=== PATIENT | male | born 1975 | race African-American/Black ===

== ENCOUNTER 2018-08-10 22:34 | Emergency (ER) | payer BC ==
[~2018-08-10] VITALS: Ht 182.9 cm; Wt 99.3 kg
--- NOTE | ~2018-08-10 | EKG ---
[place] [address] [facility] [place] [address] ELECTROCARDIOGRAM REPORT Name: OTTO HUGO Room #: DEP Juli#: [id number] Admission: 08/10/18 Attend Phys: Discharge: 08/10/18 Date of : 71 Report #: [id number] THIS REPORT FOR: //name// [facility] ED Test Date: 2018-08-10 Test Time: 22:39:35 Pat Name: OTTO HUGO Department: Room: Gender: Technology Risk Intern: [facility] : 1975 Requested By: Patrick Blankenship Order Number: [id number] MD: Brian Serra Measurements Intervals [place] Rate: 55 P: 66 MN: 164 QRS: 58 QRSD: 90 T: -39 QT: 372 QTc: 356 Interpretive Statements Sinus rhythm Atrial premature complex Left atrial enlargement Borderline T abnormalities Early R-wave progression No previous ECG available for comparison Electronically Signed On 08-11-2018 8:05:53 CDT by Brian Serra [email or web address] <ELECTRONICALLY SIGNED> By: Brian Serra MD, [facility] 08/11/18 [id number] Brian Serra MD, FACC /EPI
[~2018-08-10 22:34] MED LIST: ACETAMINOPHEN-1 EAC1 PO; ERYTHROMYCIN E3.5 G1 OP
[2018-08-10] MEDS ORDERED: EXFORGE HCT 5-1 EAC1 PO (23:03)
[2018-08-10 23:06] LABS: ABSOLUTE NEUTROPHILS 2.4 thou/uL (1.4-8.2); BASOPHILS 0.8 % (0.0-2.0); EOSINOPHILS 2.6 % (0.0-3.0); HEMATOCRIT 41.3 % (42.0-52.0); HEMOGLOBIN 14.2 gm/dL (14.0-18.0); LYMPHOCYTES 44.6 % (24.0-44.0); MCH 28.8 pg (26.0-34.0); MCHC 34.3 g/dL (28.0-37.0); MCV 83.9 fL (80.0-100.0); MONOCYTES 8.7 % (1.0-8.0); PLATELET COUNT 195 thou/uL (150-400); POLYS 43.3 % (36.0-66.0); RBC 4.92 mil/uL (4.50-6.00); RDW 12.6 % (10.5-14.5); WBC 5.6 thou/uL (4.0-11.0)
[2018-08-10 23:12] LABS: ANION GAP 10 mmol/L (7-16); BUN 19 mg/dL (7-18); CALCIUM 9.3 mg/dL (8.5-10.1); CHLORIDE 102 mmol/L (98-107); CO2 28 mmol/L (21-32); CREATININE 1.3 mg/dL (0.7-1.3); POTASSIUM 3.6 mmol/L (3.5-5.1); SODIUM 140 mmol/L (136-145)
[2018-08-10 23:20] LABS: TROPONIN-I <0.06 ng/mL (<0.06)
[2018-08-10 23:24] LABS: GLUCOSE 137 mg/dL (74-106)
[2018-08-10 23:27] LABS: LARGE PLATELETS SEVERAL
[2018-08-10 23:46] VITALS: BP 138/90
== END 2018-08-10 23:47 | disposition home or self-care (01) ==
LOC: ER 22:34
PROVIDERS: Emergency Medicine
DX: R07.9 Chest pain, unspecified (principal); I10 Essential (primary) hypertension

== ENCOUNTER 2018-10-16 15:34 | Emergency (ER) | payer BC ==
[~2018-10-16 15:34] MED LIST changes: +EXFORGE HCT 5-1 EAC1 PO
[2018-10-17] MEDS ORDERED: AMLOD-VALSA-HC1 EAC2 PO (11:28)
[2018-10-17] MEDS ORDERED: VITAMIN D1000 UNI1 PO (11:29)
[2018-10-17] MEDS ORDERED: FISH OIL 1,001000 M2 PO (11:29)
[2018-10-17] MEDS ORDERED: UNICOMPLEX M TA1 TA1 PO (11:30)
[2018-10-17] MEDS ORDERED: HYDROCODONE-AP1 EAC6 PO (11:50)
[2018-10-17] MEDS ORDERED: PHENERGAN 25 MG25 M1 PO (11:50)
[2018-10-17] MEDS ORDERED: FLOMAX0.4 MG PO (11:50)
== END 2018-10-16 16:54 | disposition left against medical advice (07) ==
LOC: ER 15:34
DX: Z53.21 Procedure and treatment not carried out due to patient leaving prior to being seen by health care provider (principal)

== ENCOUNTER 2018-10-17 10:22 | Emergency (ER) | payer BC ==
[~2018-10-17] VITALS: Ht 182.9 cm; Wt 99.8 kg
[2018-10-17 10:58] LABS: ABSOLUTE NEUTROPHILS 3.1 thou/uL (1.4-8.2); BASOPHILS 0.5 % (0.0-2.0); EOSINOPHILS 1.9 % (0.0-3.0); HEMATOCRIT 40.1 % (42.0-52.0); LYMPHOCYTES 27.5 % (24.0-44.0); MCH 27.6 pg (26.0-34.0); MCHC 32.5 g/dL (28.0-37.0); MONOCYTES 8.9 % (1.0-8.0); PLATELET COUNT 212 thou/uL (150-400); POLYS 61.2 % (36.0-66.0); RBC 4.72 mil/uL (4.50-6.00); RDW 13.6 % (10.5-14.5)
[2018-10-17 11:02] LABS: URINE CLARITY CLEAR; URINE COLOR YELLOW
[2018-10-17 11:06] LABS: URINE BILIRUBIN NEGATIVE (Negative); URINE BLOOD 3+ (Negative); URINE GLUCOSE-RANDOM* NEGATIVE (Negative); URINE KETONES NEGATIVE (Negative); URINE LEUKOCYTES-REFLEX NEGATIVE (Negative); URINE NITRITE-REFLEX NEGATIVE (Negative); URINE PROTEIN (DIPSTICK) NEGATIVE (Negative); URINE UROBILINOGEN 0.2 E.U./dl (0.2-1.0)
[2018-10-17 11:06] LABS: CALCIUM 8.6 mg/dL (8.5-10.1); CREATININE 1.3 mg/dL (0.7-1.3); POTASSIUM 3.2 mmol/L (3.5-5.1)
[2018-10-17 11:12] LABS: ALBUMIN 3.5 g/dL (3.4-5.0); TOTAL BILIRUBIN 0.5 mg/dL (<0.1-1.0); TOTAL PROTEIN 7.3 g/dL (6.4-8.2)
[2018-10-17 11:17] LABS: SQUAMOUS None Seen /LPF (0-3)
[2018-10-17 11:18] LABS: BACTERIA-REFLEX None Seen /HPF (None Seen); CASTS None Seen /LPF (None Seen); CRYSTALS None Seen /LPF (None Seen); URINE RBC >20 Many /HPF (0-2); URINE WBC-REFLEX 0-5 Rare /HPF (0-5)
[2018-10-17] MEDS ORDERED: AMLOD-VALSA-HC1 EAC2 PO (11:28)
[2018-10-17] MEDS ORDERED: FISH OIL 1,001000 M2 PO (11:29)
[2018-10-17] MEDS ORDERED: VITAMIN D1000 UNI1 PO (11:29)
[2018-10-17] MEDS ORDERED: UNICOMPLEX M TA1 TA1 PO (11:30)
[2018-10-17] MEDS ORDERED: FLOMAX0.4 MG PO (11:50)
[2018-10-17] MEDS ORDERED: HYDROCODONE-AP1 EAC6 PO (11:50)
[2018-10-17] MEDS ORDERED: PHENERGAN 25 MG25 M1 PO (11:50)
[2018-10-17 12:04] VITALS: BP 148/100
== END 2018-10-17 12:08 | disposition home or self-care (01) ==
LOC: ER 10:22
PROVIDERS: Physician Assistant
DX: N20.0 Calculus of kidney (principal); R31.9 Hematuria, unspecified; Z87.891 Personal history of nicotine dependence

== ENCOUNTER 2018-12-16 19:30 | Emergency (ER) | payer BC ==
[~2018-12-16] VITALS: Ht 182.9 cm; Wt 100.7 kg
[~2018-12-16 19:30] MED LIST changes: +AMLOD-VALSA-HC1 EAC2 PO; +FISH OIL 1,001000 M2 PO; +FLOMAX0.4 MG PO; +HYDROCODONE-AP1 EAC6 PO; +PHENERGAN 25 MG25 M1 PO; +UNICOMPLEX M TA1 TA1 PO; +VITAMIN D1000 UNI1 PO
[2018-12-16 21:00] LABS: URINE BILIRUBIN NEGATIVE (Negative); URINE BLOOD TRACE (Negative); URINE CLARITY CLEAR; URINE COLOR YELLOW; URINE GLUCOSE-RANDOM* NEGATIVE (Negative); URINE KETONES NEGATIVE (Negative); URINE LEUKOCYTES-REFLEX NEGATIVE (Negative); URINE NITRITE-REFLEX NEGATIVE (Negative); URINE PROTEIN (DIPSTICK) NEGATIVE (Negative); URINE UROBILINOGEN 0.2 E.U./dl (0.2-1.0)
[2018-12-16] MEDS ORDERED: NORCO 5-325 TA1 EACH PO (21:04)
[2018-12-16 21:24] VITALS: BP 131/93
== END 2018-12-16 21:39 | disposition home or self-care (01) ==
LOC: ER 19:30
PROVIDERS: Emergency Medicine
DX: N20.0 Calculus of kidney (principal); Z87.891 Personal history of nicotine dependence

== ENCOUNTER 2019-05-05 00:44 | Emergency (ER) | payer BC ==
[~2019-05-05] VITALS: Ht 180.3 cm; Wt 102.1 kg
[~2019-05-05 00:44] MED LIST changes: +NORCO 5-325 TA1 EACH PO
[2019-05-05 01:13] LABS: URINE BILIRUBIN NEGATIVE (Negative); URINE BLOOD 3+ (Negative); URINE COLOR YELLOW; URINE GLUCOSE-RANDOM* NEGATIVE (Negative); URINE KETONES NEGATIVE (Negative); URINE LEUKOCYTES-REFLEX NEGATIVE (Negative); URINE NITRITE-REFLEX NEGATIVE (Negative); URINE PROTEIN (DIPSTICK) NEGATIVE (Negative); URINE SPECIFIC GRAVITY 1.015 (1.005-1.035); URINE UROBILINOGEN 0.2 E.U./dl (0.2-1.0)
[2019-05-05 01:18] LABS: URINE CLARITY HAZY
[2019-05-05 01:26] LABS: BACTERIA-REFLEX 1-9 Few /HPF (None Seen); CASTS None Seen /LPF (None Seen); CRYSTALS None Seen /LPF (None Seen); MUCUS 0-3 Light strn/LPF (None Seen); SQUAMOUS 0-3 Few /LPF (0-3); URINE RBC >20 Many /HPF (0-2); URINE WBC-REFLEX 0-5 Rare /HPF (0-5)
[2019-05-05 01:52] LABS: ABSOLUTE NEUTROPHILS 2.5 thou/uL (1.4-8.2); BASOPHILS 0.7 % (0.0-2.0); EOSINOPHILS 2.5 % (0.0-3.0); HEMATOCRIT 40.5 % (42.0-52.0); HEMOGLOBIN 13.9 gm/dL (14.0-18.0); MCH 28.6 pg (26.0-34.0); MCHC 34.3 g/dL (28.0-37.0); MCV 83.5 fL (80.0-100.0); MONOCYTES 10.8 % (1.0-8.0); PLATELET COUNT 189 thou/uL (150-400); RBC 4.85 mil/uL (4.50-6.00); RDW 13.2 % (10.5-14.5)
[2019-05-05 02:00] LABS: CALCIUM 8.9 mg/dL (8.5-10.1); CREATININE 1.3 mg/dL (0.7-1.3); POTASSIUM 3.6 mmol/L (3.5-5.1)
[2019-05-05 02:06] LABS: ALBUMIN 3.8 g/dL (3.4-5.0); TOTAL BILIRUBIN 0.3 mg/dL (<0.1-1.0); TOTAL PROTEIN 7.6 g/dL (6.4-8.2)
[2019-05-05] MEDS ORDERED: NORCO 5-325 TA1 EAC1 PO (03:41)
[2019-05-05] MEDS ORDERED: ZOFRAN ODT4 MG PO (03:41)
[2019-05-05] MEDS ORDERED: SENNA-DOCUSATE1 EAC1 PO (03:41)
[2019-05-05] MEDS ORDERED: IBUPROFEN 600600 M1 PO (03:41)
[2019-05-05 03:56] VITALS: BP 134/95
== END 2019-05-05 03:57 | disposition home or self-care (01) ==
LOC: ER 00:44
PROVIDERS: Emergency Medicine
DX: N20.1 Calculus of ureter (principal); R11.2 Nausea with vomiting, unspecified; Z87.891 Personal history of nicotine dependence

== ENCOUNTER 2019-07-08 18:22 | Emergency (ER) | payer BC ==
[~2019-07-08] VITALS: Ht 182.9 cm; Wt 102.1 kg
[~2019-07-08 18:22] MED LIST changes: +IBUPROFEN 600600 M1 PO; +NORCO 5-325 TA1 EAC1 PO; +SENNA-DOCUSATE1 EAC1 PO; +ZOFRAN ODT4 MG PO
[2019-07-08] MEDS ORDERED: EDARBI40 MG PO (18:37)
[2019-07-08] MEDS ORDERED: NORVASC5 MG PO (18:38)
[2019-07-08 19:08] LABS: ABSOLUTE NEUTROPHILS 3.4 thou/uL (1.4-8.2); BASOPHILS 0.7 % (0.0-2.0); EOSINOPHILS 2.5 % (0.0-3.0); HEMATOCRIT 40.9 % (42.0-52.0); HEMOGLOBIN 13.4 gm/dL (14.0-18.0); LYMPHOCYTES 33.3 % (24.0-44.0); MCH 27.7 pg (26.0-34.0); MCHC 32.6 g/dL (28.0-37.0); MCV 84.9 fL (80.0-100.0); MONOCYTES 9.5 % (1.0-8.0); PLATELET COUNT 262 thou/uL (150-400); RBC 4.82 mil/uL (4.50-6.00); RDW 13.3 % (10.5-14.5); WBC 6.3 thou/uL (4.0-11.0)
[2019-07-08 19:11] LABS: CALCIUM 9.2 mg/dL (8.5-10.1); CREATININE 1.1 mg/dL (0.7-1.3); POTASSIUM 3.7 mmol/L (3.5-5.1)
[2019-07-08 19:17] LABS: ALBUMIN 3.8 g/dL (3.4-5.0); DIRECT BILIRUBIN 0.1 mg/dL (<0.1-0.3); TOTAL BILIRUBIN 0.4 mg/dL (<0.1-1.0); TOTAL PROTEIN 7.9 g/dL (6.4-8.2)
[2019-07-08 19:57] LABS: URINE BILIRUBIN NEGATIVE (Negative); URINE BLOOD TRACE (Negative); URINE CLARITY CLEAR; URINE COLOR YELLOW; URINE GLUCOSE-RANDOM* NEGATIVE (Negative); URINE KETONES NEGATIVE (Negative); URINE LEUKOCYTES-REFLEX NEGATIVE (Negative); URINE NITRITE-REFLEX NEGATIVE (Negative); URINE PROTEIN (DIPSTICK) NEGATIVE (Negative); URINE UROBILINOGEN 0.2 E.U./dl (0.2-1.0)
[2019-07-08] MEDS ORDERED: NORFLEX100 MG PO (20:24)
[2019-07-08 20:35] VITALS: BP 134/87
== END 2019-07-08 20:35 | disposition home or self-care (01) ==
LOC: ER 18:22
PROVIDERS: Emergency Medicine
DX: R07.89 Other chest pain (principal); I10 Essential (primary) hypertension; Z87.891 Personal history of nicotine dependence; Z87.442 Personal history of urinary calculi

== ENCOUNTER 2020-07-03 19:03 | Emergency (ER) | payer BC ==
[~2020-07-03] VITALS: Ht 182.9 cm; Wt 105.0 kg
[~2020-07-03 19:03] MED LIST changes: +EDARBI40 MG PO; +NORFLEX100 MG PO; +NORVASC5 MG PO
[2020-07-03] MEDS ORDERED: AMLOD-VALSA-HC1 EAC2 PO (19:06)
[2020-07-03] MEDS ORDERED: ZYRTEC10 M4 PO (19:08)
[2020-07-03 19:28] LABS: URINE BILIRUBIN NEGATIVE (Negative); URINE BLOOD 3+ (Negative); URINE CLARITY CLEAR; URINE COLOR YELLOW; URINE GLUCOSE-RANDOM* NEGATIVE (Negative); URINE KETONES NEGATIVE (Negative); URINE LEUKOCYTES-REFLEX NEGATIVE (Negative); URINE NITRITE-REFLEX NEGATIVE (Negative); URINE PROTEIN (DIPSTICK) NEGATIVE (Negative); URINE SPECIFIC GRAVITY 1.025 (1.005-1.035); URINE UROBILINOGEN 0.2 E.U./dl (0.2-1.0)
[2020-07-03 19:38] LABS: URINE RBC >20 Many /HPF (0-2)
[2020-07-03 19:39] LABS: BACTERIA-REFLEX 1-9 Few /HPF (None Seen); CASTS None Seen /LPF (None Seen); CRYSTALS None Seen /LPF (None Seen); SQUAMOUS None Seen /LPF (0-3); URINE WBC-REFLEX None Seen /HPF (0-5)
[2020-07-03 20:08] LABS: ABSOLUTE NEUTROPHILS 2.6 thou/uL (1.4-8.2); BASOPHILS 0.5 % (0.0-2.0); EOSINOPHILS 3.7 % (0.0-3.0); HEMATOCRIT 40.9 % (42.0-52.0); HEMOGLOBIN 13.4 gm/dL (14.0-18.0); LYMPHOCYTES 35.7 % (24.0-44.0); MCH 28.2 pg (26.0-34.0); MCHC 32.7 g/dL (28.0-37.0); MCV 86.1 fL (80.0-100.0); MONOCYTES 11.2 % (1.0-8.0); PLATELET COUNT 215 thou/uL (150-400); POLYS 48.9 % (36.0-66.0); RBC 4.75 mil/uL (4.50-6.00); RDW 13.4 % (10.5-14.5); WBC 5.4 thou/uL (4.0-11.0)
[2020-07-03 20:12] LABS: CALCIUM 8.7 mg/dL (8.5-10.1); CREATININE 1.3 mg/dL (0.7-1.3); POTASSIUM 3.2 mmol/L (3.5-5.1)
[2020-07-03 20:18] LABS: ALBUMIN 3.6 g/dL (3.4-5.0); TOTAL BILIRUBIN 0.4 mg/dL (0.2-1.0)
[2020-07-03 20:49] VITALS: BP 136/75
== END 2020-07-03 20:51 | disposition home or self-care (01) ==
LOC: ER 19:03
PROVIDERS: Nurse Practitioner
DX: R31.9 Hematuria, unspecified (principal); Z79.899 Other long term (current) drug therapy; Z87.891 Personal history of nicotine dependence